=== PATIENT | female | born 1955 | race African-American/Black ===

== ENCOUNTER 2020-02-12 08:57 | Inpatient (IN) | payer MEDICAID, OTHER ==
[~2020-02-12] VITALS: Ht 163.8 cm; Wt 70.0 kg
[~2020-02-12 08:57] MED LIST: ASPI-1160 PO; TRIA1CAP35 PO
[2020-02-12] MEDS ORDERED: MORPHINE SULFATE 4 MG/ML CPJ (NOT FOR IM USE) IV STA ×2 (09:28→12:22)
[2020-02-12] MEDS ORDERED: ONDANSETRON HCL 4MG/2ML INJ IV STA ×2 (09:28→12:22)
[2020-02-12] MEDS ORDERED: SODIUM CHLORIDE 0.9% 1,000 ML IV ONE (09:30)
[2020-02-12 10:47] LABS: BASOPHILS % 0.7 % (0.0-2.0); EOSINOPHILS % 0.5 % (0.0-5.0); HEMOGLOBIN. 14.7 g/dL (12.0-16.0); MEAN CORPUSCULAR HEMOGLOBIN 38.5 pg (28.0-32.0); MEAN CORPUSCULAR VOLUME 115.4 fL (81.0-99.0); MEAN PLATELET VOLUME 8.3 fl (7.4-10.4); MONOCYTES % 4.4 % (2.0-8.0); NEUTROPHILS % 71.4 % (40.0-76.0); PLATELET 196 x1000/uL (130-400); RED BLOOD CELL COUNT 3.81 mill/uL (4.2-5.4); RED CELL DISTRIBUTION WIDTH 14.8 % (11.6-14.6)
[2020-02-12 10:54] LABS: CHLORIDE 103 mEq/L (98-107)
[2020-02-12 11:13] LABS: CLARITY URINE CLOUDY (CLEAR); COLOR URINE YELLOW (YELLOW); KETONES URINE 1+ (NEGATIVE); LEUKOCYTE ESTERASE URINE TRACE (NEGATIVE); NITRITE URINE NEGATIVE (NEGATIVE); OCCULT BLOOD URINE NEGATIVE (NEGATIVE); PH URINE 5.5 (4.5-8.0); PROTEIN URINE NEGATIVE (NEGATIVE); SPECIFIC GRAVITY URINE 1.017 (1.005-1.030)
[2020-02-12 11:44] LABS: *AMPHETAMINES SCREEN URINE NEGATIVE (NEGATIVE); CANNABINOID URINE SCREEN PRESUMTIVE POSITIVE (NEGATIVE); PHENCYCLIDINE URINE SCREEN NEGATIVE (NEGATIVE)
[2020-02-12 11:45] LABS: *BARBITURATES SCREEN URINE NEGATIVE (NEGATIVE); *BENZODIAZEPINES SCREEN URINE NEGATIVE (NEGATIVE); *COCAINE SCREEN URINE NEGATIVE (NEGATIVE); METHADONE URINE SCREEN NEGATIVE (NEGATIVE); OPIATES URINE SCREEN NEGATIVE (NEGATIVE)
[2020-02-12] MEDS ORDERED: IOHEXOL-300 100 ML BOTTLE ONE (11:54)
[2020-02-12 12:12] LABS: PLATELET ESTIMATE NORMAL
[2020-02-12] MEDS ORDERED: ASPIRIN 81MG TABLET PO ONE (13:15)
[2020-02-12] MEDS ORDERED: HYDROCODONE/ACETAMINOPHEN 10/325MG TABLET PO NR (18:11)
[2020-02-12] MEDS ORDERED: ONDANSETRON HCL 4MG/2ML INJ IV PRN (18:30)
[2020-02-12] MEDS ORDERED: LORAZEPAM 2MG/ML CPJ IV PRN (18:30)
[2020-02-12] MEDS ORDERED: FOLIC ACID 1 MG, THIAMINE HCL 100 MG, MVI, ADULT NO.1 10 ML in DEXTROSE 5% WATER 1,000 ML IV ONE ×4 (19:30)
[2020-02-12] MEDS ORDERED: HYDROCODONE/ACETAMINOPHEN 10/325MG TABLET PO PRN (22:00)
[2020-02-13 00:30] VITALS: BP 146/89
[2020-02-13 00:40] VITALS: BP 146/89
[2020-02-13 04:00] VITALS: BP 133/91
[2020-02-13 12:15] VITALS: BP 127/79
[2020-02-13] MEDS ORDERED: CHLORDIAZEPOXIDE 25MG CAPSULE PO SCH (14:00)
[2020-02-13] MEDS ORDERED: IOHEXOL-350 100 ML BOTTLE ONE (15:51)
[2020-02-13 16:00] VITALS: BP 131/83
[2020-02-13 18:14] VITALS: BP 135/83
[2020-02-14] MEDS ORDERED: TRAM50TA3 MT ×2 (13:25→13:26)
== END 2020-02-13 19:12 | disposition home or self-care (01) | DRG 347 ==
LOC: ER 09:13 → 6WST 13:30 → ENRESERV 02-13 00:28
PROVIDERS: ADMIT Internal Medicine; ATTEND Internal Medicine
DX: M54.2 Cervicalgia (principal); R07.9 Chest pain, unspecified; I10 Essential (primary) hypertension; R00.0 Tachycardia, unspecified; F12.90 Cannabis use, unspecified, uncomplicated; F10.129 Alcohol abuse with intoxication, unspecified; Y90.9 Presence of alcohol in blood, level not specified; Z79.82 Long term (current) use of aspirin; Z79.899 Other long term (current) drug therapy
CPT/HCPCS: 36415; 71045; 71260; 71275; 80053; 80305; 80320; 81003; 83880; 84484; 85025; 85379; 96374; 99285; J2270; J2405; J3411; J3490; J7030; J7070; Q9967; G0480